=== PATIENT | male | born 1955 | race Two or more races ===

== ENCOUNTER → 2016-10-10 | Outpatient (CLI) | payer OTHER ==
[~2016-10-10] MED LIST: ALLO300T46 PO; ALPR0.257 PO; AMIO200T2 PO; AMLO-147 PO; CLON-379 PO; COLE1TAB5 PO; FENO135C3 PO; FURO40TA4 PO; HUMALOG SC; HYDROCODONE APAP PO; LACTULOSE PO; LANS15CA PO; LANTUS SC; LISI40TA PO; MECL-77 PO; METO100T PO; METO5TAB2 PO; NIT4 SL; RANI300C7 PO; SERT50TA6 PO; ZOLP10TA5 PO; [UNRECOGNIZED DRUG - CODE] PO
== END | disposition home or self-care (01) ==
LOC: PUL 13:52
PROVIDERS: ATTEND Internal Medicine
DX: F45.8 Other somatoform disorders (principal)
CPT/HCPCS: 94060; 94726; 94729